=== PATIENT | female | born 1985 | race Caucasian/White ===

== ENCOUNTER 2020-12-22 19:19 | Emergency (ER) | payer OTHER ==
[2020-12-22 19:30] VITALS: BP 130/69
[2020-12-22 19:47] LABS: GLUCOSE, URINE (UA) NEGATIVE (NEGATIVE); KETONES,URINE (UA) 15 mg/dL (NEGATIVE); LEUKOCYTE ESTERASE, URINE MODERATE (NEGATIVE); NITRITE,URINE POSITIVE (NEGATIVE); OCCULT BLOOD,URINE LARGE (NEGATIVE); PROTEIN,URINE >=300 mg/dL (NEGATIVE); UROBILINOGEN,URINE 2 E.U./dL (NORMAL)
[2020-12-22 19:57] LABS: BILIRUBIN,URINE NEGATIVE (NEGATIVE); CLARITY,URINE BLOODY (CLEAR); HCG UR QUAL NEGATIVE; ICTOTEST,URINE NEGATIVE
[2020-12-22 19:58] LABS: BACTERIA,URINE Few /HPF (None Seen); RBC,URINE TNTC /HPF (0-5); SQUAMOUS EPITHELIAL CELL,UR FEW Squamous (<= Few)
[2020-12-22] MEDS ORDERED: PHENAZOPYRIDINE 100 MG TABLET PO STA (20:17)
--- NOTE | 2020-12-22 20:19 | ED Physician Documentation ---
History of Present Illness - Stated complaint Stated Complaint: FEMALE - Chief complaint Chief Complaint: UTI - Additonal information Additional information: 35-year-old female presents emergency department for evaluation of 2 days of dys uria urgency and frequency. This did follow sexual intercourse. She has been taking Azo [id number] which should improve the symptoms however today she noted that she had some hematuria that she presents here. She does report a history of previous urinary tract infection and this feels similar. However she has not had one for a number of years. Some nausea but no vomiting. No flank pain or fevers. Denies any pertinent past medical history and takes no routinely prescribed medications. Review of Systems Constitutional: denies: Fever, Chills Eyes: reports: Reviewed and negative Nose: reports: Reviewed and negative Throat: reports: Reviewed and negative Cardiac: reports: Reviewed and negative Respiratory: reports: Reviewed and negative GI: reports: Reviewed and negative : reports: Dysuria, Frequency, Hesitancy, Unable to Void, Hematuria Skin: reports: Reviewed and negative Musculoskeletal: reports: Reviewed and negative PD PAST MEDICAL HISTORY - Past Medical History Past Medical History: Yes Respiratory: Asthma Psych: Other Other Past Medical History: Insomnia - Past Surgical History Past Surgical History: No - Present Medications Home Medications: Ambulatory Orders Medication Instructions Recorded Confirmed Cefpodoxime Proxetil [Vantin] 100 mg PO Q12H #14 tablet 12/22/20 Eszopiclone [Lunesta] 2 mg PO QPM 12/22/20 12/22/20 Phenazopyridine HCl [Pyridium] 200 mg PO TID PRN #6 tablet 12/22/20 - Allergies Allergies/Adverse Reactions: Allergies Allergy/AdvReac Type Severity Reaction Status Date / Time No Known Drug Allergies Allergy Verified 12/22/20 19:30 - Social History Does the pt smoke?: No Smoking Status: Never smoker Does the pt drink ETOH?: Yes ETOH Use: Wine, Beer Does the pt have substance abuse?: No - Immunizations Immunizations are current?: Yes - POLST Patient has POLST: No PD ED PE NORMAL - General General: Alert and oriented X 3, No acute distress - Neck Neck: Supple, no meningeal sign - Cardiac Cardiac: RRR, No murmur - Respiratory Respiratory: Clear bilaterally - Abdomen Abdomen: Normal bowel sounds, Soft, Non distended. No: Non tender (Mild suprapubic tenderness to palpation) - Back Back: No CVA TTP, No spinal TTP - Derm Derm: Normal color, Warm and dry, No rash - Extremities Extremities: No deformity - Neuro Neuro: Alert and oriented X 3 Eye Opening: Spontaneous Motor: Obeys Commands Verbal: Oriented GCS Score: 15 Results - Vitals Vitals: Vital Signs - 24 hr 12/22/20 19:28 Temperature 36.7 C Heart Rate 86 Respiratory 16 Rate Blood Pressure 130/69 O2 Saturation 100 Oxygen O2 Source Room air - Labs Labs: Laboratory Tests 12/22/20 19:32 Urine Color RED/BLOODY Urine Clarity BLOODY Urine pH 7.0 Ur Specific [place] 1.020 Urine Protein >=300 H Urine Glucose (UA) NEGATIVE Urine Ketones 15 H Urine Occult Blood LARGE H Urine Nitrite POSITIVE H Urine Bilirubin NEGATIVE Urine Urobilinogen 2 H Ur Leukocyte Esterase MODERATE H Urine RBC TNTC H Urine WBC 6-10 H Ur Squamous Epith Cells FEW Squamous Urine Bacteria Few Ur Microscopic Review INDICATED Urine Culture Comments INDICATED Urine HCG, Qual NEGATIVE PD MEDICAL DECISION MAKING - ED course Complexity details: reviewed results, d/w patient ED course: Well-appearing 35-year-old female presents the emergency department for evaluation of dysuria urgency and frequency as well as hematuria that began 2 days ago. UA is consistent with acute cystitis. No fevers flank pain or CVA tenderness. My suspicion for ascending infection or pyelonephritis is low. Patient will be started on Cefpodoxime as well as is Pyridium. Emergent return precautions were discussed for failure of symptoms to improve. Departure - Departure Disposition: 01 Home, Self Care Clinical Impression: UTI (urinary tract infection) Qualifiers: Urinary tract infection type: acute cystitis Hematuria presence: with hematuria Qualified Code(s): N30.01 - Acute cystitis with hematuria Condition: Stable Record reviewed to determine appropriate education?: Yes Instructions: ED UTI Cystitis Female Prescriptions: Phenazopyridine HCl [Pyridium] 200 mg PO TID PRN #6 tablet PRN Reason: dysuria Cefpodoxime Proxetil [Vantin] 100 mg PO Q12H #14 tablet Comments: Shivani you do have a urinary tract infection. I have electronically sent your prescriptions to the [facility] in [place]. Please fill the prescription for the Cefpodoxime and begin taking twice daily for the next week. I have also prescribed some Pyridium which will turn your urine bright orange but should help with the spasms and pain. Please drink a whole lot of fluids to help flush your bladder. If at any point you feel that your symptoms are not improving, you develop fevers flank pain or have uncontrolled vomiting then please return to the ER for a second evaluation.
[2020-12-22] MEDS ORDERED: CEFPODOXIME PROXETIL 100 MG TABLET PO STA (20:23)
[2020-12-22] MEDS ORDERED: CEFPODOXIME PROXETIL 100 MG TABLET PO SCH (21:00)
== END 2020-12-22 20:42 | disposition home or self-care (01) ==
LOC: ED 19:19
DX: N30.01 Acute cystitis with hematuria (principal)
CPT/HCPCS: 81001; 81025; 87086; 99283; A9270; 81003